=== PATIENT | female | born 1985 | race Caucasian/White ===

== ENCOUNTER 2016-10-30 12:17 | Emergency (ER) | payer BC, OTHER ==
[~2016-10-30] VITALS: Ht 162.6 cm; Wt 49.6 kg
[2016-10-30 12:23] VITALS: BP 121/78; PULSE 106; RESP 18; TEMP 98.7; O2SAT 99
[2016-10-30] MEDS ORDERED: ORPHENADRINE INJ 60 MG/2 ML AMP IM ONE (14:00)
[2016-10-30] MEDS ORDERED: KETOROLAC TROMETHAMINE 60 MG/2 ML (IM) VIAL IM ONE (14:00)
[2016-10-30] MEDS ORDERED: ROBA750T PO (14:02)
[2016-10-30] MEDS ORDERED: IBUP800T23 PO (14:02)
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
== END 2016-10-30 15:47 | disposition home or self-care (01) ==
LOC: PHEFT 12:17
DX: S39.012A Strain of muscle, fascia and tendon of lower back, initial encounter (principal); M54.16 Radiculopathy, lumbar region; V49.59XA Passenger injured in collision with other motor vehicles in traffic accident, initial encounter; Y92.410 Unspecified street and highway as the place of occurrence of the external cause
CPT/HCPCS: 72131; 96372; 99284; J1885; J2360